=== PATIENT | male | born 1980 | race Hispanic/Latino ===

== ENCOUNTER 2021-01-29 17:45 | Emergency (ER) | payer OTHER ==
[~2021-01-29] VITALS: Ht 182.9 cm; Wt 79.8 kg
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
[2021-01-29 18:57] VITALS: BP 123/73
== END 2021-01-29 19:14 | disposition home or self-care (01) ==
LOC: ER 17:45
DX: Z02.83 Encounter for blood-alcohol and blood-drug test (principal); V49.9XXA Car occupant (driver) (passenger) injured in unspecified traffic accident, initial encounter; Y93.89 Activity, other specified; Y92.488 Other paved roadways as the place of occurrence of the external cause; Y99.8 Other external cause status
CPT/HCPCS: 36415; 80307; 82077; 99283